=== PATIENT | male | born 1950 | race American Indian/Alaskan Native ===

== ENCOUNTER 2017-06-23 12:39 | Outpatient (CLI) | payer BC ==
--- NOTE | 2017-06-23 13:22 | XRay Report ---
XRAY LEFT KNEE FOUR: 06/23/17 12:39:00 CLINICAL: Left knee pain. FINDINGS: No fracture or dislocation. Moderate osteoarthritis with greater narrowing of the medial joint space. Medial and lateral osteophytes. Chondrocalcinosis of the lateral meniscus. Patellofemoral joint osteoarthritis with relatively large osteophytes. No joint effusion. Vascular calcifications. IMPRESSION: Moderate osteoarthritis. Chondrocalcinosis of the lateral meniscus.
== END 2017-06-23 12:40 | disposition home or self-care (01) ==
LOC: SPVIMAG 12:39
PROVIDERS: ATTEND Orthopaedic Surgery
DX: M17.12 Unilateral primary osteoarthritis, left knee (principal); M11.262 Other chondrocalcinosis, left knee; M25.862 Other specified joint disorders, left knee

== ENCOUNTER 2017-09-22 12:54 | Outpatient (CLI) | payer BC ==
--- NOTE | 2017-09-24 08:45 | Magnetic Resonance Report ---
MRI LEFT KNEE WITHOUT CONTRAST: 09/22/17 CLINICAL: Chondromalacia left knee. Left knee pain. TECHNIQUE: Sagittal proton density fat sat and T2, coronal T2 fat sat and T1 and axial gradient T2*sequences a 1.5 Janet magnet. FINDINGS: Tear and degeneration of the anterior horn of the medial meniscus with abnormal morphology and hyperintense meniscal signal at the meniscal margins. Medial and anterior extrusion of the medial meniscus. Abnormal horizontal signal in the posterior horn of the medial meniscus extending to near the inferior surface. Full-thickness cartilage loss as well as thinning of the cortical bone of the medial femoral condyle. Subchondral T1 hypointensities and T2 hyperintensities of the medial femoral condyle. No osteochondral defects or loose bodies identified. Large anterior and lateral medial osteophytes. The lateral meniscus is intact. Mild thinning of the lateral femoral cartilage. Large anterior and lateral osteophytes. The cruciate ligaments and collateral ligaments are intact. Intact posterolateral corner structures including the popliteus tendon. Full-thickness cartilage defects in the medial patellar cartilage and patellofemoral osteophytes. The patellar tendon and retinaculum are intact. Large knee joint effusion and a moderate size popliteal cyst with fluid in the gastrocnemius-semimembranosus bursa. It measures 4.9 x 0.6 x 2.9 cm. Prepatellar and infrapatellar anterior subcutaneous soft tissue edema. No bone contusion or fracture. IMPRESSION: 1. 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 2. Full thickness chondromalacia and cortical thinning of the medial femoral condyle. 3. Moderate osteoarthritis of the medial and lateral joints. 4. No ligamentous injury. 5. Chondromalacia patellae and patellofemoral osteoarthritis. 6. Large knee joint effusion and a 5 cm popliteal cyst. 7. No loose body identified.
== END 2017-09-22 12:55 | disposition home or self-care (01) ==
LOC: SPVIMAG 12:54
PROVIDERS: ATTEND Orthopaedic Surgery
DX: S83.242A Other tear of medial meniscus, current injury, left knee, initial encounter (principal); M17.12 Unilateral primary osteoarthritis, left knee; M94.262 Chondromalacia, left knee; M25.862 Other specified joint disorders, left knee; X58.XXXA Exposure to other specified factors, initial encounter; Y93.89 Activity, other specified; Y92.89 Other specified places as the place of occurrence of the external cause; Y99.8 Other external cause status
CPT/HCPCS: 73721